=== PATIENT | female | born 1930 | race Caucasian/White ===

== ENCOUNTER 2017-06-10 07:17 | Inpatient (IN) | payer MEDICARE, OTHER ==
[~2017-06-10] VITALS: Ht 165.1 cm; Wt 74.5 kg
--- NOTE | ~2017-06-10 | CN ---
PATIENT NAME:ARPAN SHEPHERD MEDICAL RECORD: [id number] : 34 LOCATION:[facility] ADMIT DATE: 06/10/17 ACCOUNT: [id number] CONSULTING PHYSICIAN: OSMAN WARD MD REFERRING PHYSICIAN: IRAJ HECK MD DATE OF CONSULTATION: 06/11/2017 HISTORY OF PRESENT ILLNESS: An 86-year-old female with a history of atrial fibrillation, chronic major history of hypertension, admitted with worsening cough, congestion, fever, found to have a left lower lobe pneumonitis, admitted for treatment, had an episode after breathing treatment of tachycardia, some chest pain. Certainly could be angina. We are asked to see her concerning her cardiovascular status. PAST MEDICAL HISTORY: Includes, 1. History of chronic atrial fibrillation. 2. Diabetes mellitus. 3. Hypertension. 4. Osteoarthritis. ALLERGIES: DEMEROL. MEDICATIONS: Typically include iron supplementation 20/25 every day, diltiazem 90 t.i.d., Crestor 10 every day, losartan 25 every day, Xanax as needed, Glucotrol 10 every day, Synthroid 50 mcg every day, Glucophage 500 b.i.d. SOCIAL HISTORY: She is a nonsmoker, nondrinker. She is able to take care of her ADLs. REVIEW OF SYSTEMS: The patient reports easy bruising but reports no swollen glands. The patient reports no fever, no night sweats, no significant weight gain, no significant weight loss. No significant exercise tolerance. The patient reports no dry eyes, no irritation, no vision change. Patient reports no difficulty hearing and no ear pain. Patient reports no frequent nose bleeds or nose and sinus problems. Patient reports on arm pain on exertion. No shortness of breath while lying down. No history of heart murmur. Patient reports no cough, no wheezing or coughing up blood. Patient reports no abdominal pain, no vomiting. Normal appetite. No diarrhea and not vomiting blood. No nausea and no constipation. Patient reports no incontinence. No difficulty urinating. No hematuria. No increased frequency. Patient reports no muscle aches. No weakness, no arthralgias, no back pain. No swelling of the extremities. Patient reports no abnormal mole, no jaundice, no rashes. Reports no loss of consciousness. No weakness and no numbness. No seizures, dizziness, or headaches. The patient reports no depression, no sleep disturbance, feeling safe in a relationship and no alcohol abuse. Patient reports on fatigue. Reports no runny nose or sinus pressure. No itching, no hives, and no frequent sneezing. PHYSICAL EXAMINATION: GENERAL: Pleasant female in no acute distress. VITAL SIGNS: Pulse currently 112, blood pressure 118/64. HEENT: Normocephalic, atraumatic. NECK: No bruits noted. HEART: Irregular rate, mildly tachy. LUNGS: Fair air excursion, diminished breath sounds at the bases. CONSULT REPORT [id number] ARPAN SHEPHERD ABDOMEN: Soft, nontender. EXTREMITIES: Pulses are actually preserved 2+. There is no edema. IMPRESSION: Atrial fibrillation with increased rates, suspect demand ischemia. I agree with increasing Cardizem. We will check echocardiographic study. Further recommendations based on above. TRANSINT:[id number] Voice Confirmation ID: [id number] DOCUMENT ID: [id number] OSMAN WARD MD at 0824 CC: [id number] DICTATION DATE: 06/11/17 1414 [employer]: 06/11/17 2331 ADM IN [facility] [address] [place] [address]
--- NOTE | ~2017-06-10 | OP ---
PATIENT NAME: ARPAN SHEPHERD MEDICAL RECORD: [id number] :34 LOCATION:.[facility] [id number] ADMISSION DATE:06/10/17 SURGEON: DEBORAH COLLINS MD DATE OF OPERATION: 06/16/2017 PREOPERATIVE DIAGNOSES: 1. Need for IV access. 2. Septic shock. 3. Pneumonia. 4. Constipation. 5. Atrial fibrillation. 6. Diastolic congestive heart failure. POSTOPERATIVE DIAGNOSES: 1. Need for IV access. 2. Septic shock. 3. Pneumonia. 4. Constipation. 5. Atrial fibrillation. 6. Diastolic congestive heart failure. PROCEDURE: Right subclavian vein triple-lumen central venous line placement. SURGEON: Deborah Collins MD REPORT OF PROCEDURE: The patient's right chest was prepped and draped in sterile fashion. A total of 5 cc of 1% lidocaine was infused into the subcutaneous tissues. A needle was used to cannulate the right subclavian vein. The guidewire was advanced with ease. Over this wire, a dilator was placed followed by the triple-lumen catheter. The catheter aspirated nonpulsatile dark blood and flushed easily in all 3 ports. This was sutured into place with 3-0 silk ties and dressed appropriately. COMPLICATIONS: None. CONDITION: Fair. ANESTHESIA: Local. BLOOD LOSS: Minimal. TRANSINT:[id number] Voice Confirmation ID: [id number] DOCUMENT ID: [id number] DEBORAH COLLINS MD at 1319 CC: [id number] DICTATION DATE: 06/17/17 0003 [employer] TE[employer]: 06/17/17 0025 DIS IN 06/17/17 [place] [address]
[2017-06-10 08:32] LABS: ALBUMIN 3.4 g/dL (3.4-5.0); ANION GAP 14.9 mmol/L (8-16); BILIRUBIN - TOTAL 0.7 mg/dL (0.2-1.3); CALCIUM 8.6 mg/dL (8.5-10.1); CARBON DIOXIDE 22.3 mmol/L (21.0-32.0); CREATININE - SERUM 1.3 mg/dL (0.6-1.3); POTASSIUM - SERUM 4.2 mmol/L (3.5-5.1); PROTEIN - SERUM 6.8 g/dL (6.4-8.2)
[2017-06-10 08:53] LABS: HEMATOCRIT 36.6 % (36.0-48.0); HEMOGLOBIN 12.1 g/dL (12-16); MCH 27.9 pg (26.0-34.0); MCHC 33.1 g/dL (31.0-37.0); MCV 84.3 fL (80.0-100.0); MEAN PLATELET VOLUME 9.2 fL (7.4-10.4); PLATELET COUNT 485 10x3/uL (130-400); RBC 4.34 10x6/uL (4.00-5.40); RDW 15.3 % (11.5-14.5); WBC 22.9 10x3/uL (4.8-10.8)
[2017-06-10 09:23] LABS: EOSINOPHILS 1 % (0-7); LYMPHOCYTES 9 % (15-50); MONOCYTES 9 % (2-11); NEUTROPHILS 71 % (40-80); PLATELET ESTIMATE INCREASED
[2017-06-10 12:13] LABS: % SATURATION 4 % (15-55); IRON 17 ug/dl (35-150); TOTAL IRON BIND CAPACITY 379 ug/dl (260-445); UNSAT IRON BIND CAPACITY 362 ug/dl (150-375)
[2017-06-10 13:34] VITALS: BP 127/62; BMI 27.3
[2017-06-10] MEDS ORDERED: GLUCOTROL XL 1010 MG PO (14:59)
[2017-06-10] MEDS ORDERED: CARDIZEM 90 MG90 MG PO (14:59)
[2017-06-10] MEDS ORDERED: NEXIUM40 MG PO (15:00)
[2017-06-10] MEDS ORDERED: SYNTHROID50 MCG PO (15:00)
[2017-06-10] MEDS ORDERED: GLUCOPHAGE500 MG PO (15:01)
[2017-06-10] MEDS ORDERED: XANAX0.5 MG PO (15:01)
[2017-06-10] MEDS ORDERED: COZAAR25 MG PO (15:02)
[2017-06-10] MEDS ORDERED: CRESTOR10 MG PO (15:02)
[2017-06-10] MEDS ORDERED: FERROUS SULFAT325 MG PO (15:03)
[2017-06-10 15:58] VITALS: BP 126/46
[2017-06-10 21:23] VITALS: BP 106/56
[2017-06-10 22:33] LABS: APPEARANCE CLEAR (CLEAR); BILIRUBIN NEGATIVE (NEGATIVE); COLOR YELLOW (YELLOW); GLUCOSE NEGATIVE (NEGATIVE); KETONE NEGATIVE (NEGATIVE); NITRITE NEGATIVE (NEGATIVE); PROTEIN TRACE mg/dL (NEGATIVE); UROBILINOGEN NORMAL (NORMAL)
[2017-06-10 22:34] LABS: BACTERIA FEW /hpf (NONE SEEN); RED CELLS - URINE OCC /hpf (0-5); WHITE CELLS - URINE 0-5 /hpf (0-5)
[2017-06-11 01:58] VITALS: BP 97/49
[2017-06-11 05:08] LABS: BASOPHILS 0.1 % (0-2); EOSINOPHILS 0 % (0-7); HEMATOCRIT 34.1 % (36.0-48.0); IMMATURE GRANULOCYTES 0.4 % (0-5); LYMPHOCYTES 10.5 % (15-50); MCH 27.4 pg (26.0-34.0); MCHC 32.3 g/dL (31.0-37.0); MCV 84.8 fL (80.0-100.0); MEAN PLATELET VOLUME 9.2 fL (7.4-10.4); MONOCYTES 6.3 % (2-11); NEUTROPHILS 82.7 % (40-80); PLATELET COUNT 410 10x3/uL (130-400); RBC 4.02 10x6/uL (4.00-5.40); RDW 15.4 % (11.5-14.5)
[2017-06-11 05:11] LABS: WBC 14.3 10x3/uL (4.8-10.8)
[2017-06-11 05:24] VITALS: BP 98/43
[2017-06-11 05:27] LABS: ALBUMIN 2.9 g/dL (3.4-5.0); ANION GAP 12.7 mmol/L (8-16); BILIRUBIN - TOTAL 0.63 mg/dL (0.2-1.3); CALCIUM 9.1 mg/dL (8.5-10.1); CARBON DIOXIDE 24.5 mmol/L (21.0-32.0); CREATININE - SERUM 1.2 mg/dL (0.6-1.3); MAGNESIUM - SERUM 1.5 mg/dL (1.8-2.4); PHOSPHOROUS 4.1 mg/dL (2.5-4.9); POTASSIUM - SERUM 4.2 mmol/L (3.5-5.1); PROTEIN - SERUM 6.3 g/dL (6.4-8.2)
[2017-06-11 07:06] VITALS: BP 125/65
[2017-06-11 08:08] LABS: CKMB 1.6 U/L (0.0-3.6); CREATINE KINASE 33 UL (21-215)
[2017-06-11 08:10] LABS: TROPONIN-I 0.016 ng/mL (0.000-0.060)
[2017-06-11 08:20] LABS: FOLATE (FOLIC ACID) - SERUM 8.4 ng/mL (>3.0)
[2017-06-11 11:04] VITALS: BP 118/64
[2017-06-11 15:11] VITALS: BP 125/69; BP 128/67
[2017-06-11 15:21] LABS: CKMB 1.6 U/L (0.0-3.6); CREATINE KINASE 29 UL (21-215)
[2017-06-11 15:22] LABS: TROPONIN-I 0.017 ng/mL (0.000-0.060)
[2017-06-11 20:37] LABS: CKMB 1.3 U/L (0.0-3.6); CREATINE KINASE 31 UL (21-215); TROPONIN-I 0.021 ng/mL (0.000-0.060)
[2017-06-11 21:12] VITALS: BP 131/53
[2017-06-12 00:59] VITALS: BP 96/56
[2017-06-12 02:40] LABS: CKMB 1.9 U/L (0.0-3.6); CREATINE KINASE 34 UL (21-215)
[2017-06-12 04:16] LABS: BASOPHILS 0.1 % (0-2); EOSINOPHILS 0.1 % (0-7); HEMATOCRIT 33.3 % (36.0-48.0); HEMOGLOBIN 10.6 g/dL (12-16); IMMATURE GRANULOCYTES 0.4 % (0-5); LYMPHOCYTES 6.9 % (15-50); MCHC 31.8 g/dL (31.0-37.0); MCV 84.7 fL (80.0-100.0); MEAN PLATELET VOLUME 9.3 fL (7.4-10.4); MONOCYTES 3.6 % (2-11); NEUTROPHILS 88.9 % (40-80); PLATELET COUNT 456 10x3/uL (130-400); RBC 3.93 10x6/uL (4.00-5.40); RDW 15.3 % (11.5-14.5); WBC 13.3 10x3/uL (4.8-10.8)
[2017-06-12 04:38] LABS: ANION GAP 14.2 mmol/L (8-16); CALCIUM 9.2 mg/dL (8.5-10.1); CARBON DIOXIDE 24.9 mmol/L (21.0-32.0); CREATININE - SERUM 1.2 mg/dL (0.6-1.3); PHOSPHOROUS 3.5 mg/dL (2.5-4.9)
[2017-06-12 04:41] LABS: MAGNESIUM - SERUM 1.9 mg/dL (1.8-2.4); POTASSIUM - SERUM 5.1 mmol/L (3.5-5.1)
[2017-06-12 05:05] VITALS: BP 116/61
[2017-06-12 08:24] VITALS: BP 126/53
[2017-06-12 08:37] LABS: CKMB 1.8 U/L (0.0-3.6); CREATINE KINASE 36 UL (21-215); TROPONIN-I < 0.017 ng/mL (0.000-0.060)
[2017-06-12 12:10] VITALS: BP 129/52
[2017-06-12 14:09] LABS: IMMUNOGLOBULIN A 78 mg/dL (64-422); IMMUNOGLOBULIN G 442 mg/dL (700-1600)
[2017-06-12 16:39] VITALS: BP 123/49
[2017-06-12 22:35] VITALS: BP 119/66
[2017-06-13 06:09] VITALS: BP 114/72
[2017-06-13 07:50] LABS: BASOPHILS 0 % (0-2); EOSINOPHILS 0 % (0-7); HEMATOCRIT 34.5 % (36.0-48.0); HEMOGLOBIN 11.5 g/dL (12-16); IMMATURE GRANULOCYTES 0.7 % (0-5); LYMPHOCYTES 7.5 % (15-50); MCH 27.5 pg (26.0-34.0); MCHC 33.3 g/dL (31.0-37.0); MCV 82.5 fL (80.0-100.0); MONOCYTES 2.5 % (2-11); NEUTROPHILS 89.3 % (40-80); PLATELET COUNT 609 10x3/uL (130-400); RBC 4.18 10x6/uL (4.00-5.40); RDW 15.1 % (11.5-14.5); WBC 20.6 10x3/uL (4.8-10.8)
[2017-06-13 08:00] LABS: CALC OSMOLALITY 276 mosm/kg (275-300); CALCIUM 9.8 mg/dL (8.5-10.1); CARBON DIOXIDE 25.5 mmol/L (21.0-32.0); CHLORIDE - SERUM 92 mmol/L (98-107); CKMB 2.1 U/L (0.0-3.6); CREATINE KINASE 37 UL (21-215); CREATININE - SERUM 1.6 mg/dL (0.6-1.3); GLUCOSE 344 mg/dL (74-106); POTASSIUM - SERUM 3.6 mmol/L (3.5-5.1); SODIUM 127 mmol/L (136-145); TROPONIN-I < 0.017 ng/mL (0.000-0.060); UREA NITROGEN 35 mg/dL (7-18); eGFR NON AFRICAN AMERICAN 32 mL/min (90-120)
[2017-06-13 08:26] VITALS: BP 141/58
[2017-06-13 10:12] LABS: ANA REFLEX - DIRECT Negative (Negative)
[2017-06-13 13:42] VITALS: BP 144/78
[2017-06-13 16:40] VITALS: BP 137/74
[2017-06-13 23:40] VITALS: BP 170/50
[2017-06-14 03:09] LABS: ANGIOTENSIN CONVERTING ENZYME 32 U/L (14-82); MYCOPLASMA PNEUMO IGG <100 U/mL (0-99)
[2017-06-14 05:25] LABS: BASOPHILS 0.1 % (0-2); EOSINOPHILS 0 % (0-7); HEMATOCRIT 34.1 % (36.0-48.0); HEMOGLOBIN 11.5 g/dL (12-16); IMMATURE GRANULOCYTES 1.3 % (0-5); LYMPHOCYTES 7.9 % (15-50); MCH 27.5 pg (26.0-34.0); MCHC 33.7 g/dL (31.0-37.0); MCV 81.6 fL (80.0-100.0); MEAN PLATELET VOLUME 8.8 fL (7.4-10.4); MONOCYTES 3.7 % (2-11); PLATELET COUNT 553 10x3/uL (130-400); RBC 4.18 10x6/uL (4.00-5.40); RDW 15.1 % (11.5-14.5); WBC 16.3 10x3/uL (4.8-10.8)
[2017-06-14 05:49] LABS: CARBON DIOXIDE 27.2 mmol/L (21.0-32.0); CREATININE - SERUM 1.6 mg/dL (0.6-1.3); POTASSIUM - SERUM 3.2 mmol/L (3.5-5.1)
[2017-06-14 06:13] VITALS: BP 124/51
[2017-06-14 08:51] VITALS: BP 114/70
[2017-06-14 13:24] VITALS: BP 132/70
[2017-06-14 15:45] VITALS: BP 139/69
[2017-06-14 16:12] LABS: ANCA - ANTIMYELOPEROXIDASE <9.0 U/mL (0.0-9.0); ANCA - ANTIPROTEINASE 3 <3.5 U/mL (0.0-3.5); ANCA - ATYPICAL <1:20 titer (Neg:<1:20); ANCA - CYTOPLASMIC <1:20 titer (Neg:<1:20); ANCA - PERINUCLEAR <1:20 titer (Neg:<1:20)
[2017-06-14 23:07] VITALS: BP 122/62
[2017-06-15 05:23] VITALS: BP 109/64
[2017-06-15 05:45] LABS: BASOPHILS 0.1 % (0-2); EOSINOPHILS 0 % (0-7); HEMATOCRIT 34.5 % (36.0-48.0); HEMOGLOBIN 11.6 g/dL (12-16); IMMATURE GRANULOCYTES 1.4 % (0-5); LYMPHOCYTES 9.2 % (15-50); MCH 27.4 pg (26.0-34.0); MCHC 33.6 g/dL (31.0-37.0); MCV 81.6 fL (80.0-100.0); MEAN PLATELET VOLUME 8.8 fL (7.4-10.4); MONOCYTES 4.5 % (2-11); NEUTROPHILS 84.8 % (40-80); PLATELET COUNT 609 10x3/uL (130-400); RBC 4.23 10x6/uL (4.00-5.40); RDW 15.1 % (11.5-14.5); WBC 16.5 10x3/uL (4.8-10.8)
[2017-06-15 05:54] LABS: ANION GAP 14.4 mmol/L (8-16); CALCIUM 9.2 mg/dL (8.5-10.1); CREATININE - SERUM 1.7 mg/dL (0.6-1.3); POTASSIUM - SERUM 3.4 mmol/L (3.5-5.1)
[2017-06-15 08:45] VITALS: BP 121/63
[2017-06-15 12:45] VITALS: BP 157/66
[2017-06-15 16:43] VITALS: BP 124/53
[2017-06-15 22:09] VITALS: BP 131/67
[2017-06-16] VITALS (18 sets, daily range): BP systolic 64–140; BP diastolic 27–105; Ht 165.1 cm; Wt 74.5 kg
[2017-06-16 03:11] LABS: IMMUNOGLOBULIN E 3 IU/mL (0-100)
[2017-06-16 04:51] LABS: BASOPHILS 0.1 % (0-2); EOSINOPHILS 0 % (0-7); HEMATOCRIT 34.8 % (36.0-48.0); HEMOGLOBIN 11.7 g/dL (12-16); IMMATURE GRANULOCYTES 1.7 % (0-5); LYMPHOCYTES 7.6 % (15-50); MCH 27.4 pg (26.0-34.0); MCHC 33.6 g/dL (31.0-37.0); MCV 81.5 fL (80.0-100.0); MEAN PLATELET VOLUME 8.9 fL (7.4-10.4); MONOCYTES 5.7 % (2-11); NEUTROPHILS 84.9 % (40-80); PLATELET COUNT 630 10x3/uL (130-400); RBC 4.27 10x6/uL (4.00-5.40); RDW 15.1 % (11.5-14.5); WBC 19.8 10x3/uL (4.8-10.8)
[2017-06-16 05:22] LABS: ANION GAP 16.3 mmol/L (8-16); BILIRUBIN - TOTAL 0.2 mg/dL (0.2-1.3); CALCIUM 8.5 mg/dL (8.5-10.1); CARBON DIOXIDE 24.7 mmol/L (21.0-32.0); CREATININE - SERUM 2.1 mg/dL (0.6-1.3); PROTEIN - SERUM 6.2 g/dL (6.4-8.2)
[2017-06-16 19:41] LABS: HEMATOCRIT 28.6 % (36.0-48.0); HEMOGLOBIN 9.5 g/dL (12-16); MCH 27.7 pg (26.0-34.0); MCHC 33.2 g/dL (31.0-37.0); MCV 83.4 fL (80.0-100.0); PLATELET COUNT 581 10x3/uL (130-400); RBC 3.43 10x6/uL (4.00-5.40); RDW 15.5 % (11.5-14.5)
[2017-06-16 20:21] LABS: ANION GAP 20.1 mmol/L (8-16); CALCIUM 8.2 mg/dL (8.5-10.1); CARBON DIOXIDE 21.1 mmol/L (21.0-32.0); CREATININE - SERUM 2.6 mg/dL (0.6-1.3)
[2017-06-16 20:23] LABS: LYMPHOCYTES 10 % (15-50); MONOCYTES 1 % (2-11); NEUTROPHILS 83 % (40-80); PLATELET ESTIMATE INCREASED
[2017-06-16 20:27] LABS: ROULEAUX 1+
[2017-06-16 20:30] LABS: POTASSIUM - SERUM 5.2 mmol/L (3.5-5.1)
[2017-06-17] VITALS (7 sets, daily range): BP systolic 56–143; BP diastolic 31–132
== END 2017-06-17 01:40 | DRG 871 ==
LOC: D.ER 07:17 → D.ICU 10:31 → D.EDHOLD 10:31 → D.MS 10:31 → D.ICU 06-16 22:05
PROVIDERS: Emergency Medicine; Family Medicine; Internal Medicine Nephrology; Internal Medicine Pulmonary Disease
PROC: 02HV33Z Insertion of Infusion Device into Superior Vena Cava, Percutaneous Approach (ICD-10-PCS; principal; 2017-06-16)
DX: A41.9 Sepsis, unspecified organism (principal); J18.9 Pneumonia, unspecified organism; R65.21 Severe sepsis with septic shock; J96.01 Acute respiratory failure with hypoxia; I50.33 Acute on chronic diastolic (congestive) heart failure; J45.901 Unspecified asthma with (acute) exacerbation; E87.1 Hypo-osmolality and hyponatremia; N17.9 Acute kidney failure, unspecified; E11.9 Type 2 diabetes mellitus without complications; J84.112 Idiopathic pulmonary fibrosis; I11.0 Hypertensive heart disease with heart failure; E83.42 Hypomagnesemia; I48.2 Chronic atrial fibrillation; K59.00 Constipation, unspecified; K21.9 Gastro-esophageal reflux disease without esophagitis